=== PATIENT | female | born 1985 | race Hispanic/Latino ===

== ENCOUNTER 2024-08-11 11:17 | Day surgery (SDC) | payer OTHER ==
[2024-08-11 08:35] LABS: Absolute Lymphocytes (CBC) 1.7 K/uL (0.7-4.9); Absolute Monocytes 0.3 K/uL (0.1-1.3); Absolute Neutrophil 1.3 K/uL (1.8-8.0); Basophils % 0.4 % (0-1.3); Eosinophils % 1.5 % (0-4.4); Hematocrit 33.1 % (36.0-45.0); Hemoglobin 10.4 g/dL (12.0-15.0); Lymphocytes % 50.1 % (15.3-44.8); MCH 24.6 pg (27.0-35.0); MCHC 31.6 g/dL (32.0-36.0); Monocytes % 8.2 % (3.3-12.3); Neutrophils % 39.8 % (41.7-73.7); Platelets 310 thou/uL (152-406); RBC Red Blood Cell Count 4.24 M/uL (3.86-4.86); Red Cell Distribution Width 16.4 % (12.1-15.2)
[2024-08-11 08:44] LABS: Anion Gap 7.9 mEq/L (5.0-15.0); Potassium 3.9 mEq/L (3.5-5.1)
--- NOTE | 2024-08-11 08:59 | RAD REPORT ---
EXAM DESCRIPTION: Homero Penaloza (2 Views)08/11/2024 8:32 am CLINICAL HISTORY: Preop for hernia repair COMPARISON: None FINDINGS: The lungs appear clear of acute infiltrate. The heart is normal size IMPRESSION: No acute abnormalities displayed
[2024-08-11] MEDS ORDERED: Ringers Lactate 1,000 ML IV ONE (11:42)
[2024-08-11] MEDS ORDERED: CEFAZOLIN SODIUM 1 GM/VIAL ONE (11:42)
[2024-08-11] MEDS ORDERED: FENTANYL CITR 100 MCG/2 ML ONE (12:40)
[2024-08-11] MEDS ORDERED: propofoL 200 MG/20 ML VIAL IV ONE (12:40)
[2024-08-11] MEDS ORDERED: ROCURONIUM 50 MG/5 ML VIAL IV ONE (12:40)
[2024-08-11] MEDS ORDERED: MIDAZOLAM HCL 2 MG/2 ML INJ ONE (12:40)
[2024-08-11] MEDS ORDERED: LIDOCAINE 1% MPF 5 ML VIAL ONE (12:40)
[2024-08-11] MEDS ORDERED: KETOROLAC 30 MG/ML INJ ONE (13:17)
[2024-08-11] MEDS ORDERED: ONDANSETRON 4 MG/2 ML VIAL ONE ×2 (13:17→14:44)
[2024-08-11] MEDS ORDERED: dexAMETHasone 4 MG/ML VIAL ONE (13:17)
[2024-08-11] MEDS ORDERED: Mastisol Adhesive Liq ONE (13:46)
[2024-08-11] MEDS: HYDROMORPHONE HCL 1 MG/ML INJ ONE ×2 (14:13→14:26)
--- NOTE | 2024-08-11 14:35 | P.BOP ---
Preoperative diagnosis: incisional incarcerated epigastric ventral hernia Postoperative diagnosis: same plus incisional umbilical hernia Primary procedure: 1.Lap. repair incisional incarcerated epigastric ventral hernia w mesh 4 cm Secondary procedure: 2. Lap repair of umbilical incisional hernia 2 cm Estimated blood loss: <10cc Specimen: sac x 2 Findings: two insicional hernias , different locations Anesthesia: General Complications: None Implants: ventralex medium ventral epigastric Transferred to: Recovery Room Condition: Good
[2024-08-11 14:52] VITALS: BP 124/75; TEMP 97; O2SAT 97
--- NOTE | 2024-08-11 22:24 | OP ---
Date of Procedure: 08/11/2024 Surgeon: Abhijit aBlderas MD Preoperative Diagnosis: Tender incisional incarcerated epigastric ventral hernia. Postoperative Diagnosis: Tender incisional incarcerated epigastric ventral hernia, also incisional u mbilical hernia. Procedures: 1.Laparoscopic repair of incisional incarcerated epigastric ventral hernia with mesh above 4 cm. 2.Laparoscopic repair of umbilical incisional hernia 2 cm. Estimated Blood Loss: Less than 10 mL. Specimen: Hernia sac x2. Findings: Patient has 2 incisional hernias in different locations, 1 of them is located on the epiga stric region were patient has a previous incision. This has part of the omentum and part from ligame nt going through the hernia itself. The patient also has intraabdominal adhesions holding this oment um in place that have to be dissected with LigaSure. We also have to mobilize the falciform ligament to be able to expose the layers of the fascia and also fit the mesh properly and that was done with the help of LigaSure. She also have a hernia on the umbilical region with the omentum coming through it that was carefully reduced. The hernia sac was removed. We have to fix the hernia too. The umb ilical hernia did not require the mesh. Complications: None. Mesh: She has a Ventralex mesh over the epigastric area. Indications: This is a case of a 39-year-old patient comes to us with a ventral lump. There is 1 in the epigastric area. There is also 1 in the umbilical region, tender, diagnosed with an incisional ventral hernia, so the benefits, alternatives, and risks of laparoscopic versus open repair with poss ible mesh fully explained, which include, but not limited to infection, bleeding, damage to adjacent structures, anesthesia complication, recurrence, NM, and . She also understands this may not re lieve the symptoms. She might need more than one surgical intervention. She understands that we may use mesh in that region, so pros and cons of mesh placement was discussed with the patient and all t he questions were answered to her satisfaction. She signed a consent. We did the workup, even thoug h imaging did not show it properly. We still have clinically umbilical hernia that may not need to b e fixed and obviously she wants that fixated we find at the same time. Description Of Procedure: She brought to the operating room, placed in supine position. Anesthesia was done without complication. Abdominal area was prepped and draped in a sterile fashion. Local an esthesia was placed to the area to be incised. Since we have the umbilical lump, we used that area t o see where we can use that hernia opening to put the Isabell trocar through, so we opened the skin, i dentified the hernia sac, removed the hernia sac, reduced the content, clean the fascial edges, looke d like this fascia edges will be okay with that mesh, so we put Vicryl #1 inside the fascia. Isabell trocar was carefully introduced. No bleeding was obtained. After that under direct visualization, w e were able to visualize the ventral epigastric hernia. The falciform ligaments in our way are going through it, so have to be mobilized. Some adhesions of omentum also have to be taken care of. So, we put 2 trocars, 5 mm each one of them on the left and right abdomen. This allowed me to introduce the LigaSure and carefully reduced the hernia content and mobilize the falciform ligament to the poin t that we can close that with a medium mesh overlapping the area after closure about 3-5 cm. At that moment, we made a counter incision where the patient has a previous incision in the ventral region a nd then this allowed me to clean the fascial edges little bit better and then [id number] #1 mult iple times stitch in the fascial edges to be able to release approximating cover the mesh since it is not enough to strained that area to be on her own. So, we selected a mesh to that region Ventralex so we placed the mesh. At that moment, I proceeded to introduce a Ventralex mesh, pulled the straps through the incision. Secured the mesh underneath with SorbaFix fixation device. Removed the straps , closed with Vicryl #1 at least tie them. This created an AirSeal incision and then laparoscopic ag ain continues circumferentially adding a SorbaFix to make sure that mesh is secured in place and ther e is no in between the intestines that can get through. After that, we checked for hemostasis. No b leeding. We checked the previous umbilical region. We closed that with #1 Vicryl, it is nice and ti ght. We checked the area of the lysis of adhesions, no bleeding, so I removed the pneumoperitoneum a nd removed the trocars under direct visualization. Closed the subcutaneous tissue with 3-0 chromic a nd the skin with subcuticular fashion 3-0 chromic and Steri-Strips on top. Sponge count, instrument counts correct. Patient tolerated the procedure well. Patient sent to recovery in stable condition. Diagnosis; incisional incarcerated epigastric ventral hernia and incisional umbilical hernia. Proc edure, laparoscopic repair of incisional incarcerated epigastric ventral hernia with mesh and laparos copic repair of umbilical incisional hernia. Condition: Stable. Disposition: Home. Activity: As tolerated, no heavy lifting. Follow up in my office in 1 week. Call for appointment [phone]. Keep area dry for 48 hours, they m ay shower. Abdominal binder while she is out of bed. MIKEY/SHELLI Voice ID: [id number] Report ID: [id number]
--- NOTE | 2024-08-14 13:00 | EKG ---
Test Date: 2024-08-11 Test Time: 08:14:01 Director Of Market Intelligence: ALFREDO MEASUREMENT RESULTS: Intervals: Rate: 68 ME: 162 QRSD: 88 QT: 382 QTc: 406 [place]: P: 57 ME: 162 QRS: 85 T: 58 INTERPRETIVE STATEMENTS: Normal sinus rhythm Normal ECG No previous ECG available for comparison Electronically Signed On 08-14-24 12:50:51 CDT by Juanito Warner
== END 2024-08-11 15:30 | disposition home or self-care (01) ==
LOC: OR 11:17
PROVIDERS: ATTEND Surgery
PROC: 0WUF4JZ Supplement Abdominal Wall with Synthetic Substitute, Percutaneous Endoscopic Approach (ICD-10-PCS; principal; 2024-08-11 12:30)
DX: K43.0 Incisional hernia with obstruction, without gangrene (principal); K42.9 Umbilical hernia without obstruction or gangrene
CPT/HCPCS: 49594; 93005; 85025; 80048; 36415; 84703; 88302; 71046; J2704; J1100; J2001; J3010; J1170 ×2; J2405 ×2; J7120; J0690; J2250